=== PATIENT | male | born 1975 | race Two or more races ===

== ENCOUNTER 2017-07-12 19:00 | Emergency (ER) | payer OTHER ==
[~2017-07-12] VITALS: Ht 162.6 cm; Wt 72.6 kg
[2017-07-12 20:59] LABS: *BILIRUBIN,URIN NEGATIVE (NEGATIVE); *BLOOD, URINE NEGATIVE (NEGATIVE); *CLARITY,URINE CLEAR (CLEAR); *COLOR,URINE YELLOW (YELLOW); *KETONES,URINE NEGATIVE (NEGATIVE); *PROTEIN,URINE NEGATIVE (NEGATIVE); *UROBILINOGEN,URINE 0.2 E.U./dl (NORMAL); LEUKOCYTE ESTERASE ,URINE NEGATIVE (NEGATIVE); NITRITE, URINE NEGATIVE (NEGATIVE); PH,URINE 6.5 (5.0-8.0)
[2017-07-12 21:11] LABS: BASOPHILS % (AUTO) 0.6 % (0.0-2.0); EOSINOPHILS # (AUTO) 0.2 K/uL (0.0-0.7); EOSINOPHILS % (AUTO) 1.9 % (0.0-7.0); HEMATOCRIT 44.5 % (40-50); HEMOGLOBIN 14.5 G/DL (14.0-18.0); LYMPHOCYTES # (AUTO) 2.3 K/UL (0.8-4.8); LYMPHOCYTES % (AUTO) 28.9 % (20.5-51.5); MEAN CORPUSCULAR HEMOGLOBIN 28.4 UUG (27.0-31.0); MEAN CORPUSCULAR HGB CONC 33 g/dL (32.0-37.0); MEAN CORPUSCULAR VOLUME 86.7 FL (82.0-92.0); MONOCYTES # (AUTO) 0.7 K/UL (0.1-1.30); MONOCYTES % (AUTO) 8.5 % (0.0-11.0); NEUTROPHILS # (AUTO) 4.8 K/UL (1.8-8.9); NEUTROPHILS % (AUTO) 60.1 % (38.5-71.5); PLATELET COUNT (AUTO) 226 K/UL (150-450); RED BLOOD CELL COUNT(AUTO) 5.13 MIL/UL (4.7-6.1); WHITE BLOOD COUNT (AUTO) 7.9 K/UL (4.0-11.2)
[2017-07-12 21:15] LABS: CREATININE 0.9 mg/dL (0.6-1.3); POTASSIUM 3.6 mmol/L (3.5-5.1)
[2017-07-12 21:20] LABS: UGLUCOSE 1+ (NEGATIVE)
[2017-07-12 21:21] LABS: BILIRUBIN,DIRECT 0.1 mg/dL (0.0-0.2); BILIRUBIN,TOTAL 0.3 mg/dL (0.2-1.0); TOTAL PROTEIN, SERUM 7.9 g/dL (6.4-8.2)
[2017-07-12 21:26] LABS: MUCUS,URINE MODERATE /LPF (0-FEW); URINE AMORPHOUS PHOSPHATES MODERATE /HPF; WBC,URINE NONE SEEN /HPF (0-3)
--- NOTE | 2017-07-12 22:15 | NUR ---
patient states "I feel alot better now."
--- NOTE | 2017-07-12 22:28 | NUR ---
Patient discharged to home in stable conditon. Written and verbal after care instructions given. Patient verbalizes understanding of instructions.
[2017-07-12 22:29] VITALS: BP 128/82
== END 2017-07-12 22:30 | disposition home or self-care (01) ==
LOC: ER 19:00
DX: M54.5 Low back pain (principal)
CPT/HCPCS: 36415; 70030-TC; 83690; 85025; A4663; J1885

== ENCOUNTER 2020-03-18 06:48 | Emergency (ER) | payer OTHER ==
[~2020-03-18] VITALS: Ht 162.6 cm; Wt 72.6 kg
[2020-03-18] MEDS ORDERED: ACETAMINOPHEN ES 500 MG TABLET PO ONE (07:45)
[2020-03-18] MEDS ORDERED: ACETAMINOPHEN ES 500 MG TABLET ONE (07:47)
[2020-03-18] MEDS ORDERED: IV NORMAL SALINE 1000 ML BAG IV ONE (08:00)
[2020-03-18 08:12] LABS: BASOPHILS % (AUTO) 0.5 % (0.0-2.0); EOSINOPHILS % (AUTO) 0.2 % (0.0-7.0); HEMATOCRIT 44.3 % (36.7-47.1); HEMOGLOBIN 14.9 g/dL (12.5-16.3); LYMPHOCYTES # (AUTO) 1.2 K/uL (20.0-40.0); LYMPHOCYTES % (AUTO) 15.9 % (20.5-51.5); MEAN CORPUSCULAR HEMOGLOBIN 29.7 uug (23.8-33.4); MEAN CORPUSCULAR HGB CONC 34 g/dL (32.5-36.3); MEAN CORPUSCULAR VOLUME 88.1 fL (73.0-96.2); MONOCYTES # (AUTO) 0.6 K/uL (2.0-10.0); MONOCYTES % (AUTO) 8.3 % (0.0-11.0); NEUTROPHILS # (AUTO) 5.7 K/uL (1.8-8.9); NEUTROPHILS % (AUTO) 75.1 % (38.5-71.5); PLATELET COUNT (AUTO) 218 K/uL (152-348); RED BLOOD CELL COUNT(AUTO) 5.03 MIL/uL (4.06-5.63); WHITE BLOOD COUNT (AUTO) 7.7 K/uL (3.6-10.2)
[2020-03-18 08:16] LABS: BILIRUBIN,DIRECT 0.1 mg/dL (0.0-0.2); BILIRUBIN,TOTAL 0.6 mg/dL (0.2-1.0); CREATININE 1.1 mg/dL (0.6-1.3); POTASSIUM 3.9 mmol/L (3.5-5.1); TOTAL PROTEIN, SERUM 8.3 g/dL (6.4-8.2)
[2020-03-18 08:38] VITALS: BP 131/79
[2020-03-18 08:38] LABS: *BILIRUBIN,URIN NEGATIVE (NEGATIVE); *COLOR,URINE YELLOW (YELLOW); *KETONES,URINE NEGATIVE (NEGATIVE); *UROBILINOGEN,URINE 0.2 E.U./dl (NORMAL); LEUKOCYTE ESTERASE ,URINE NEGATIVE (NEGATIVE); NITRITE, URINE NEGATIVE (NEGATIVE); PH,URINE 8.5 (5.0-8.0); UGLUCOSE NEGATIVE (NEGATIVE)
[2020-03-18 08:42] LABS: *BLOOD, URINE TRACE (NEGATIVE)
[2020-03-18 08:43] LABS: *CLARITY,URINE SLIGHTLY CLOUDY (CLEAR)
--- NOTE | 2020-03-18 08:47 | NUR ---
Patient discharged to home in stable condition. Written and verbal after care instructions given. Patient verbalizes understanding of instructions. Stressed follow up or return to ER for worsening s/s.PT WALKS IN STEADY GAIT. PT SAYS FEELS BETTER.
[2020-03-18 08:59] LABS: MUCUS,URINE FEW /LPF (0-FEW); RBC,URINE 0-3 /HPF (0-3); SQUAMOUS EPITHELIAL CELL,UR NONE SEEN /HPF (NONE SEEN); WBC,URINE NONE SEEN /HPF (0-3)
[2020-03-18 09:02] LABS: CALCIUM PHOSPHATE CRYSTALS,UR FEW /HPF (NONE SEEN)
== END 2020-03-18 08:48 | disposition home or self-care (01) ==
LOC: ER 06:54
DX: R51 Headache (principal); X30.XXXA Exposure to excessive natural heat, initial encounter; Y92.89 Other specified places as the place of occurrence of the external cause; Z87.442 Personal history of urinary calculi
CPT/HCPCS: 36415; 70450; 85025; A4663; A9150; J7030

== ENCOUNTER 2022-04-24 16:11 | Emergency (ER) | payer SELFPAY ==
[~2022-04-24] VITALS: Ht 162.6 cm; Wt 74.8 kg
--- NOTE | 2022-04-24 16:37 | NUR ---
DR MOURA AT BEDSIDE FOR EVALUATION.
[2022-04-24] MEDS ORDERED: MELO-107 PO (16:40)
[2022-04-24] MEDS ORDERED: OMEP40CA21 PO (16:40)
[2022-04-24] MEDS ORDERED: PRED20TA PO (16:40)
[2022-04-24] MEDS ORDERED: DOCUSIL PO (16:40)
[2022-04-24] MEDS ORDERED: HYDR25SU11 RC (16:40)
[2022-04-24 16:48] LABS: *BILIRUBIN,URIN NEGATIVE (NEGATIVE); *BLOOD, URINE NEGATIVE (NEGATIVE); *CLARITY,URINE CLEAR (CLEAR); *COLOR,URINE YELLOW (YELLOW); *KETONES,URINE NEGATIVE (NEGATIVE); *UROBILINOGEN,URINE 0.2 E.U./dl (NORMAL); LEUKOCYTE ESTERASE ,URINE NEGATIVE (NEGATIVE); NITRITE, URINE NEGATIVE (NEGATIVE); PH,URINE 5.5 (5.0-8.0); UGLUCOSE TRACE (NEGATIVE)
[2022-04-24] MEDS ORDERED: CEFTRIAXONE 500 MG VIAL IM ONE (17:15)
[2022-04-24] MEDS ORDERED: KETOROLAC TROMETHAMINE 30 MG INJ IM ONE (17:15)
[2022-04-24] MEDS ORDERED: PSYL0.525 PO (17:16)
[2022-04-24] MEDS ORDERED: CIPR500T5 PO (17:16)
[2022-04-24] MEDS ORDERED: CEFTRIAXONE 500 MG VIAL ONE (17:20)
[2022-04-24] MEDS ORDERED: LIDOCAINE HCL 1% 20 ML VIAL ONE (17:20)
[2022-04-24] MEDS ORDERED: KETOROLAC TROMETHAMINE 30 MG INJ ONE (17:22)
[2022-04-24] MEDS ORDERED: LIDO30CR20 TP (17:22)
[2022-04-24] MEDS ORDERED: AZITHROMYCIN 250 MG TABLET ONE (17:27)
[2022-04-24] MEDS ORDERED: AZITHROMYCIN 250 MG TABLET PO ONE (17:30)
--- NOTE | 2022-04-24 17:41 | NUR ---
Patient discharged to home in stable condition. Written and verbal after care instructions given. Patient verbalizes understanding of instructions. Stressed follow up or return to ER for worsening s/s.
== END 2022-04-24 17:54 | disposition home or self-care (01) ==
LOC: ER 16:11
DX: K62.89 Other specified diseases of anus and rectum (principal); Z87.442 Personal history of urinary calculi
CPT/HCPCS: 99284; 81003; 96372 ×2; J0696; J1885; J3490; A4663; Q0144